=== PATIENT | male | born 1975 | race Caucasian/White ===

== ENCOUNTER 2023-09-10 09:42 | Outpatient (CLI) | payer BC ==
[2023-09-10] MEDS ORDERED: iohexol 300mg/ml 100ml inj. ONE (09:57)
== END 2023-09-10 23:59 | disposition home or self-care (01) ==
LOC: RAD 09:42
PROVIDERS: ATTEND Internal Medicine Gastroenterology
DX: C18.7 Malignant neoplasm of sigmoid colon (principal); K80.20 Calculus of gallbladder without cholecystitis without obstruction; M47.816 Spondylosis without myelopathy or radiculopathy, lumbar region
CPT/HCPCS: 74177; J3490; Q9967

== ENCOUNTER 2023-09-30 07:30 | Inpatient (IN) | payer BC ==
[2023-09-23 15:32] LABS: BASOPHILS % (AUTO) 0.4 % (0-1); EOSINOPHILS # (AUTO) 0.2 X10'3 (0-0.9); LYMPHOCYTES # (AUTO) 2.5 X10'3 (1.1-4.8); LYMPHOCYTES % (AUTO) 30.5 % (21-51); MEAN CORPUSCULAR HEMOGLOBIN 31.9 PG (27.0-31.0); MEAN CORPUSCULAR HGB CONC 34.7 g/dL (33.0-36.5); MEAN CORPUSCULAR VOLUME 91.9 FL (78-98); MEAN PLATELET VOLUME 7.8 FL (7.4-10.4); MONOCYTES # (AUTO) 0.8 X10'3 (0-0.9); MONOCYTES % (AUTO) 9.6 % (2-12); NEUTROPHILS # (AUTO) 4.8 X10'3 (1.8-7.7); NEUTROPHILS % (AUTO) 57.5 % (42-75); PRE OP HEMATOCRIT 43.1 % (42.0-52.0); PRE OP PLATELET COUNT 277 X10'3 (140-440); PRE OP WHITE BLOOD COUNT 8.3 10'3 (4.8-10.8); RED CELL DISTRIBUTION WIDTH 13.9 % (11.5-14.5)
[2023-09-23 15:46] LABS: ALBUMIN 3.9 G/DL (3.4-5.0); ALKALINE PHOSPHATASE 54 IU/L (46-116); BLOOD UREA NITROGEN 9 MG/DL (7-18); BUN/CREATININE RATIO 9.1 (10.0-20.0); CHLORIDE 103 MMOL/L (99-107); CREATININE 0.99 MG/DL (0.60-1.10); PRE OP ALT 48 U/L (30-65); PRE OP ANION GAP 7 (8-16); PRE OP AST 23 U/L (10-37); PRE OP BILIRUB, TOTAL 0.5 MG/DL (0.0-1.0); PRE OP GLUCOSE 88 MG/DL (70-104); PRE OP POTASSIUM 3.6 MMOL/L (3.4-5.1); PRE OP SODIUM 139 MMOL/L (135-145); TOTAL CARBON DIOXIDE 29.4 MMOL/L (24-32); TOTAL PROTEIN 7.7 G/DL (6.4-8.2); eGFR 81 ML/MIN
[~2023-09-30] VITALS: Ht 188 cm; Wt 104.1 kg
[2023-09-30] VITALS (23 sets, daily range): BP systolic 92–163; BP diastolic 48–109; PULSE 65–107; RESP 13–17; TEMP 97.5–98.7; O2SAT 94–99
[~2023-09-30 07:30] MED LIST: OMEG-166 PO; [UNRECOGNIZED DRUG - OTHER]; ceFOXitin 2GM-NS 100mL ADDvant 100 ML IV ONE; famotidine 20mg tablet PO ONE; ringers solution, lacted 1,000 ML IV SCH
[2023-09-30] MEDS ORDERED: ringers solution, lacted 1,000 ML IV SCH (10:25)
[2023-09-30] MEDS ORDERED: morphine 2 MG/ML inj. syringe IV PRN (10:25)
[2023-09-30] MEDS ORDERED: morphine 4 MG/ML inj SYRINge IV PRN (10:25)
[2023-09-30] MEDS ORDERED: hydrALAZINE 20mg/ml inj. IV PRN (10:25)
[2023-09-30] MEDS ORDERED: labetalol 20mg/4ml (5mg/ml) syringe IV PRN (10:25)
[2023-09-30] MEDS ORDERED: ondansetron/PF 4mg/2ml inj IV PRN ×2 (10:25→16:20)
[2023-09-30] MEDS ORDERED: fentaNYL/PF 50MCG/1 ML 2ML syringe IV PRN ×2 (10:25)
[2023-09-30] MEDS ORDERED: OMEP20TA23 PO (10:32)
[2023-09-30] MEDS ORDERED: rocuronium 10mg/ml inj IV ONE ×2 (11:25→12:47)
[2023-09-30] MEDS ORDERED: fentaNYL/PF 50MCG/1 ML 2ML syringe ONE ×2 (11:25→12:41)
[2023-09-30] MEDS ORDERED: LIDOcaine 1%/PF 5ML 10 MG/ML VIAL ONE (11:25)
[2023-09-30] MEDS ORDERED: propofol inj 20 ML IV ONE (11:25)
[2023-09-30] MEDS ORDERED: MIDAZolam 1 MG/ML 5ML VIAL ONE (11:25)
[2023-09-30] MEDS ORDERED: dexamethasone sod phosphate 4mg/ml inj. ONE (11:26)
[2023-09-30] MEDS ORDERED: ondansetron/PF 4mg/2ml inj ONE (11:26)
[2023-09-30] MEDS ORDERED: glycopyrrolate 0.2mg/ml inj ONE (11:26)
[2023-09-30] MEDS ORDERED: sevoflurane 250ml liquid IH ONE (11:28)
[2023-09-30] MEDS ORDERED: BUPIVAcaine/PF 2.5mg/ml (0.25%) 10ml vial ONE (11:41)
[2023-09-30] MEDS ORDERED: LIDOcaine 1% 30ml preserv. free vial ONE (11:41)
[2023-09-30] MEDS ORDERED: labetalol 20mg/4ml (5mg/ml) syringe IV ONE (11:42)
[2023-09-30] MEDS ORDERED: INDOCYANINE GREEN 25 MG/10 ML VIAL IV ONE (13:42)
[2023-09-30] MEDS ORDERED: sugammadex 200mg/2ml injection IV ONE (13:45)
[2023-09-30] MEDS ORDERED: HYDROmorphone 1 mg/ml syringe IV PRN (16:20)
[2023-09-30] MEDS ORDERED: naloxone 0.4 mg/ml inj IV PRN (16:20)
[2023-09-30] MEDS: acetaminophen 325mg tablet PO SCH (20:41)
[2023-09-30] MEDS: ketorolac trometh. 30mg/ml inj. IV SCH (23:55)
[2023-10-01] MEDS: acetaminophen 325mg tablet PO SCH ×3 (01:54→14:29)
[2023-10-01 02:00] VITALS: BP 122/68; PULSE 101; RESP 16; TEMP 97.1; O2SAT 96
[2023-10-01 06:00] VITALS: BP 146/82; PULSE 84; RESP 16; TEMP 97.6; O2SAT 98
[2023-10-01] MEDS: ketorolac trometh. 30mg/ml inj. IV SCH ×2 (07:40→16:27)
[2023-10-01 07:45] VITALS: RESP 18
[2023-10-01] MEDS ORDERED: enoxaparin 40mg/0.4ml syringe SQ SCH (08:00)
[2023-10-01 08:16] LABS: BASOPHILS % (AUTO) 0.2 % (0-1); EOSINOPHILS % (AUTO) 0 % (0-6); HEMATOCRIT 40.8 % (42.0-52.0); HEMOGLOBIN 13.7 g/dl (14.0-17.9); LYMPHOCYTES # (AUTO) 1.5 X10'3 (1.1-4.8); LYMPHOCYTES % (AUTO) 12.1 % (21-51); MEAN CORPUSCULAR HGB CONC 33.6 g/dL (33.0-36.5); MEAN CORPUSCULAR VOLUME 92.3 FL (78-98); MONOCYTES # (AUTO) 1.4 X10'3 (0-0.9); MONOCYTES % (AUTO) 10.9 % (2-12); NEUTROPHILS # (AUTO) 9.5 X10'3 (1.8-7.7); NEUTROPHILS % (AUTO) 76.8 % (42-75); PLATELET COUNT 226 X10'3 (140-440); RED BLOOD COUNT 4.42 X10'6 (4.70-6.10); RED CELL DISTRIBUTION WIDTH 13.4 % (11.5-14.5); WHITE BLOOD COUNT 12.4 X10'3 (4.5-11.0)
[2023-10-01 08:40] LABS: ALBUMIN 3.4 G/DL (3.4-5.0); ANION GAP 9 (8-16); BLOOD UREA NITROGEN 14 MG/DL (7-18); BUN/CREATININE RATIO 12.6 (10.0-20.0); CALCIUM 8.6 MG/DL (8.5-10.1); CHLORIDE 103 MMOL/L (99-107); CREATININE 1.11 MG/DL (0.60-1.10); GLUCOSE 110 MG/DL (70-104); POTASSIUM 3.7 MMOL/L (3.5-5.1); SODIUM 138 MMOL/L (135-145); TOTAL CARBON DIOXIDE 26.2 MMOL/L (24-32); eCRCL 96 ML/MIN; eGFR 71 ML/MIN
[2023-10-01 10:00] VITALS: BP 140/81; PULSE 98; RESP 14; TEMP 97.8; O2SAT 98
[2023-10-01 18:00] VITALS: BP 139/83; PULSE 71; RESP 16; TEMP 97.6; O2SAT 99
== END 2023-10-01 19:00 | disposition home or self-care (01) | DRG 331 ==
LOC: PAS IN 10:06 → ORTHO 4S 17:12
PROVIDERS: ADMIT Surgery; ATTEND Surgery
PROC: 0DNN4ZZ Release Sigmoid Colon, Percutaneous Endoscopic Approach (ICD-10-PCS; 2023-09-30)
PROC: 8E0W4CZ Robotic Assisted Procedure of Trunk Region, Percutaneous Endoscopic Approach (ICD-10-PCS; 2023-09-30)
PROC: 0DBN4ZZ Excision of Sigmoid Colon, Percutaneous Endoscopic Approach (ICD-10-PCS; principal; 2023-09-30 11:28)
DX: C19 Malignant neoplasm of rectosigmoid junction (principal); K66.0 Peritoneal adhesions (postprocedural) (postinfection); I10 Essential (primary) hypertension; Z79.899 Other long term (current) drug therapy
CPT/HCPCS: Z7506; Z7508; 36415; 80048; 80053; 82948; 85025; 86885; 86900; 86901; 87081; 93005; A4215; A4618; C1758; G0378; J0694; J1100; J1170; J1650; J1885; J2250; J2270; J2405; J2704; J3010; J3490; J7120

== ENCOUNTER 2024-09-13 15:18 | Emergency (ER) | payer BC ==
[~2024-09-13] VITALS: Ht 188 cm; Wt 109.1 kg
[~2024-09-13 15:18] MED LIST changes: +OMEP20TA23 PO; -ceFOXitin 2GM-NS 100mL ADDvant 100 ML IV ONE; -famotidine 20mg tablet PO ONE; -ringers solution, lacted 1,000 ML IV SCH
[2024-09-13 15:22] VITALS: TEMP 97.6
[2024-09-13 15:46] LABS: BASOPHILS % (AUTO) 0.6 % (0-1); EOSINOPHILS # (AUTO) 0.2 X10'3 (0-0.9); EOSINOPHILS % (AUTO) 3.1 % (0-6); HEMOGLOBIN 16.5 g/dl (14.0-17.9); LYMPHOCYTES # (AUTO) 1.7 X10'3 (1.1-4.8); LYMPHOCYTES % (AUTO) 21.8 % (21-51); MEAN CORPUSCULAR HEMOGLOBIN 31.8 PG (27.0-31.0); MEAN CORPUSCULAR HGB CONC 34.4 g/dL (33.0-36.5); MEAN CORPUSCULAR VOLUME 92.5 FL (78-98); MEAN PLATELET VOLUME 7.5 FL (7.4-10.4); MONOCYTES # (AUTO) 0.7 X10'3 (0-0.9); MONOCYTES % (AUTO) 9.1 % (2-12); NEUTROPHILS % (AUTO) 65.4 % (42-75); PLATELET COUNT 255 X10'3 (140-440); RED BLOOD COUNT 5.19 X10'6 (4.70-6.10); RED CELL DISTRIBUTION WIDTH 12.7 % (11.5-14.5); WHITE BLOOD COUNT 7.7 X10'3 (4.5-11.0)
[2024-09-13 16:02] LABS: ALANINE AMINOTRANSFERASE 71 U/L (12-78); ALKALINE PHOSPHATASE 60 IU/L (46-116); ANION GAP 7 (8-16); ASPARTATE AMINO TRANSFERASE 45 U/L (10-37); BILIRUBIN,TOTAL 0.7 MG/DL (0.1-1.0); BLOOD UREA NITROGEN 13 MG/DL (7-18); BUN/CREATININE RATIO 13.3 (10.0-20.0); CALCIUM 9.1 MG/DL (8.5-10.1); CHLORIDE 106 MMOL/L (99-107); CREATININE 0.98 MG/DL (0.60-1.10); GLUCOSE 121 MG/DL (70-104); POTASSIUM 3.7 MMOL/L (3.5-5.1); SODIUM 141 MMOL/L (135-145); TOTAL CARBON DIOXIDE 27.6 MMOL/L (24-32); TOTAL PROTEIN 8.1 G/DL (6.4-8.2); eCRCL 107 ML/MIN; eGFR 82 ML/MIN
[2024-09-13 16:08] LABS: PRO BRAIN NATRIURETIC PEPTIDE 40 PG/ML (0-125)
[2024-09-13 17:50] VITALS: BP 163/100; PULSE 77; RESP 16; O2SAT 99
== END 2024-09-13 18:27 | disposition home or self-care (01) ==
LOC: ER 15:19
DX: R07.89 Other chest pain (principal); I10 Essential (primary) hypertension; I49.8 Other specified cardiac arrhythmias; Z79.899 Other long term (current) drug therapy
CPT/HCPCS: 36415; 71045; 80053; 83880; 84484; 85025; 93005; 99285